=== PATIENT | male | born 1945 | race Caucasian/White ===

== ENCOUNTER 2023-05-15 19:51 | Outpatient (OUT) | payer MEDICARE, OTHER, SELFPAY | END 2023-05-15 19:52 | disposition home or self-care (01) | LOC: SLEEP 19:51 | PROVIDERS: PCP Psychiatry & Neurology Neurology; Visit Provider Psychiatry & Neurology Neurology | DX: G47.33 Obstructive sleep apnea (adult) (pediatric) (principal); G45.4 Transient global amnesia | CPT/HCPCS: 95810 ==

== ENCOUNTER 2023-06-19 20:56 | Outpatient (OUT) | payer MEDICARE, OTHER, SELFPAY | END 2023-06-19 20:57 | disposition home or self-care (01) | LOC: SLEEP 20:57 | PROVIDERS: PCP Psychiatry & Neurology Neurology; Visit Provider Psychiatry & Neurology Neurology | DX: G47.33 Obstructive sleep apnea (adult) (pediatric) (principal); G45.4 Transient global amnesia | CPT/HCPCS: 95811 ==